=== PATIENT | male | born 1945 | race Caucasian/White ===

== ENCOUNTER 2020-01-24 10:56 | Emergency (ER) | payer OTHER, MEDICARE ==
[~2020-01-24] VITALS: Ht 177.8 cm; Wt 104.3 kg
[~2020-01-24 10:56] MED LIST: FLUO10; LOSHYD; ROSU10TA
[2020-01-24] MEDS ORDERED: TAMS.4ER PO (12:18)
[2020-01-24] MEDS ORDERED: VALS80 PO (12:18)
[2020-01-24] MEDS ORDERED: GABA300 PO (12:19)
[2020-01-24] MEDS ORDERED: BENADRYL25 MG PO (12:19)
[2020-01-24] MEDS ORDERED: CHLO25B PO (12:19)
[2020-01-24] MEDS ORDERED: ASPI81CH PO (12:19)
[2020-01-24] MEDS ORDERED: METO50ER PO (12:20)
[2020-01-24] MEDS ORDERED: Percocet 7.5-31 EACH PO (14:03)
== END 2020-01-24 14:12 | disposition home or self-care (01) ==
LOC: ER 10:56
DX: M25.561 Pain in right knee (principal); G89.29 Other chronic pain; Z88.5 Allergy status to narcotic agent; Z91.013 Allergy to seafood; E11.9 Type 2 diabetes mellitus without complications; M19.90 Unspecified osteoarthritis, unspecified site; Z79.82 Long term (current) use of aspirin; Z79.899 Other long term (current) drug therapy
CPT/HCPCS: 99283

== ENCOUNTER 2023-07-14 19:15 | Emergency (ER) | payer OTHER ==
[~2023-07-14] VITALS: Ht 172.7 cm; Wt 99.8 kg
[~2023-07-14 19:15] MED LIST changes: +ASPI81CH PO; +BENADRYL25 MG PO; +CHLO25B PO; +GABA300 PO; +METO50ER PO; +Percocet 7.5-31 EACH PO; +TAMS.4ER PO; +VALS80 PO
[2023-07-14 19:44] LABS: BASOPHILS ABSOLUTE AUTO 0.04 K/mm3 (0.00-0.23); BASOPHILS PERCENT AUTO 1 % (0-2); EOSINOPHILS ABSOLUTE AUTO 0.24 K/mm3 (0.00-0.68); EOSINOPHILS PERCENT AUTO 4 % (0-6); Hematocrit 33.8 % (37.0-53.0); Hemoglobin 11.6 g/dL (13.5-17.5); IMMATURE GRAN ABSOLUTE AUTO 0.03 K/mm3 (0.00-0.10); IMMATURE GRAN PERCENT AUTO 1 % (0-1); LYMPHOCYTES ABSOLUTE AUTO 0.29 K/mm3 (0.84-5.20); LYMPHOCYTES PERCENT AUTO 5 % (21-46); MONOCYTES ABSOLUTE AUTO 0.63 K/mm3 (0.16-1.47); MONOCYTES PERCENT AUTO 12 % (4-13); Mean Corpuscular HGB Conc 34.3 g/dL (31.5-36.5); Mean Corpuscular Volume 93 fL (80-100); Mean Platelet Volume 10.1 fL (9.1-12.4); NEUTROPHILS ABSOLUTE AUTO 4.21 K/mm3 (1.96-9.15); NEUTROPHILS PERCENT AUTO 77 % (41-73); Platelet Count 123 K/mm3 (150-400); RDW Coefficient Variation 13.3 % (11.7-14.2); RDW Standard Deviation 45.7 fL (35.1-46.3); Red Blood Cell Count 3.62 M/mm3 (4.30-5.90); White Blood Cell Count 5.44 K/mm3 (4.00-11.30)
[2023-07-14 20:04] LABS: Albumin, Blood 3.4 g/dL (3.4-5.0); Albumin/Globulin Ratio 0.9 (0.8-1.8); Bilirubin, Total 0.5 mg/dL (0.1-1.0); Bun/Creatinine Ratio 15.7 (12.0-20.0); Calcium, Blood 8.4 mg/dL (8.5-10.1); Creatinine, Blood 1.21 mg/dL (0.60-1.20); Globulin, Blood 3.7 g/dL (2.2-4.0); Potassium, Blood 4.2 mmol/L (3.5-5.5); Total Protein, Blood 7.1 g/dL (6.4-8.2)
[2023-07-14 20:12] LABS: Influenza A, PCR NEGATIVE (NEGATIVE); Influenza B, PCR NEGATIVE (NEGATIVE); Resp Syncytial Virus, PCR NEGATIVE (NEGATIVE)
[2023-07-14 20:13] LABS: Source, Urine Clean Catch
[2023-07-14 20:16] LABS: Appearance, Urine Clear (Clear); Bilirubin, Urine Neg (Neg); Blood, Urine 2+ (Neg); Color, Urine Yellow (P-Yellow); Glucose Qualitative, Urine 4+ (Neg); Ketones, Urine Neg (Neg); Leukocyte Esterase, Urine Neg (Neg); Nitrite, Urine Neg (Neg); Protein, Urine 3+ (Neg); Specific Gravity, Urine 1.015 (1.003-1.022); Urobilinogen, Urine NORM (Normal)
[2023-07-14 20:24] LABS: Bacteria Rare /hpf; Squamous Epithelial Cells Not Seen /hpf (Few); White Blood Cells, Urine 0-2 /hpf (0-5)
[2023-07-14 20:40] LABS: SARS-Cov-2 (COVID-19) PCR, MMC POSITIVE (NEGATIVE)
[2023-07-14 22:00] VITALS: BP 135/93
== END 2023-07-14 23:00 | disposition home or self-care (01) ==
LOC: ER 19:15
PROVIDERS: Emergency Medicine
DX: U07.1 COVID-19 (principal); R51.9 Headache, unspecified; N18.9 Chronic kidney disease, unspecified; J44.9 Chronic obstructive pulmonary disease, unspecified; M19.90 Unspecified osteoarthritis, unspecified site; E11.22 Type 2 diabetes mellitus with diabetic chronic kidney disease; Z88.5 Allergy status to narcotic agent; Z91.018 Allergy to other foods; Z79.899 Other long term (current) drug therapy; Z79.82 Long term (current) use of aspirin
CPT/HCPCS: 0241U; 71045; 80053; 81001; 85025; 93005; 93010; A9270; J7030

== ENCOUNTER 2024-02-02 20:51 | Observation (INO) | payer OTHER ==
[~2024-02-02] VITALS: Ht 175.3 cm; Wt 105.8 kg
[~2024-02-02 20:51] MED LIST changes: -FLUO10; +FLUO10 PO
[2024-02-02] MEDS ORDERED: Nitroglycerin 0.4 MG SUBL SL ONE (21:20)
[2024-02-02] MEDS ORDERED: Aspirin 325 MG Tab PO ONE (21:20)
[2024-02-02 21:22] LABS: BASOPHILS ABSOLUTE AUTO 0.08 K/mm3 (0.00-0.23); BASOPHILS PERCENT AUTO 1 % (0-2); EOSINOPHILS ABSOLUTE AUTO 0.45 K/mm3 (0.00-0.68); EOSINOPHILS PERCENT AUTO 8 % (0-6); Hematocrit 37.7 % (37.0-53.0); Hemoglobin 12.7 g/dL (13.5-17.5); IMMATURE GRAN ABSOLUTE AUTO 0.04 K/mm3 (0.00-0.10); IMMATURE GRAN PERCENT AUTO 1 % (0-1); LYMPHOCYTES ABSOLUTE AUTO 1.44 K/mm3 (0.84-5.20); LYMPHOCYTES PERCENT AUTO 24 % (21-46); MONOCYTES ABSOLUTE AUTO 0.72 K/mm3 (0.16-1.47); MONOCYTES PERCENT AUTO 12 % (4-13); Mean Corpuscular HGB 32.2 pg (26.0-34.0); Mean Corpuscular HGB Conc 33.7 g/dL (31.5-36.5); Mean Corpuscular Volume 96 fL (80-100); Mean Platelet Volume 9.9 fL (9.1-12.4); NEUTROPHILS ABSOLUTE AUTO 3.17 K/mm3 (1.96-9.15); NEUTROPHILS PERCENT AUTO 54 % (41-73); Platelet Count 142 K/mm3 (150-400); RDW Standard Deviation 45.7 fL (35.1-46.3); Red Blood Cell Count 3.94 M/mm3 (4.30-5.90)
[2024-02-02] MEDS ORDERED: Aspirin325 MG PO (21:28)
[2024-02-02] MEDS ORDERED: JARDIANCE10 MG PO (21:37)
[2024-02-02] MEDS ORDERED: LORA10ER PO (21:39)
[2024-02-02] MEDS ORDERED: ALBU2.5V5 INH (21:39)
[2024-02-02 21:40] LABS: Albumin, Blood 3.8 g/dL (3.4-5.0); Albumin/Globulin Ratio 1.1 (0.8-1.8); Bilirubin, Total 0.4 mg/dL (0.1-1.0); Bun/Creatinine Ratio 15.2 (12.0-20.0); Calcium, Blood 9.2 mg/dL (8.5-10.1); Creatinine, Blood 2.3 mg/dL (0.60-1.20); Globulin, Blood 3.6 g/dL (2.2-4.0); Potassium, Blood 4.1 mmol/L (3.5-5.5); Total Protein, Blood 7.4 g/dL (6.4-8.2)
[2024-02-02] MEDS ORDERED: ALOGLIPTIN6.25 M1 PO (21:50)
[2024-02-02] MEDS ORDERED: MONT5TCH PO (21:51)
[2024-02-02] MEDS ORDERED: ATROVENT HFA12.9 GM (21:51)
[2024-02-02] MEDS ORDERED: Enoxaparin 30 MG/0.3 ML SYR SC SCH (23:00)
[2024-02-02] MEDS ORDERED: FentaNYL Citrate 50 MCG/ML 2 ML Injection IV PRN (23:00)
[2024-02-02] MEDS ORDERED: Ondansetron HCl 2 MG / ML 2ML Vial IV PRN (23:00)
[2024-02-02] MEDS ORDERED: Nitroglycerin 0.4 MG SUBL SL PRN (23:00)
[2024-02-02] MEDS ORDERED: FLU VACC QS2023-24(6MOS UP)/PF 60 MCG/0.5 ML SYRINGE IM ONE (23:00)
[2024-02-02] MEDS ORDERED: NS 1,000 ML IV ONE (23:55)
[2024-02-02] MEDS ORDERED: Mag Hydrox/Al Hydrox/Simeth 72 ML,Lidocaine 2% Viscous Soln 36 ML,Atropine/Scopalam/Hyo... PO PRN (23:55)
[2024-02-03 00:18] LABS: Source, Urine Clean Catch
[2024-02-03 00:21] LABS: Bilirubin, Urine Neg (Neg); Blood, Urine Neg (Neg); Glucose Qualitative, Urine 4+ (Neg); Ketones, Urine Neg (Neg); Leukocyte Esterase, Urine Neg (Neg); Nitrite, Urine Neg (Neg); Protein, Urine 3+ (Neg); Specific Gravity, Urine 1.015 (1.003-1.022); Urobilinogen, Urine NORM (Normal)
[2024-02-03 00:26] LABS: Appearance, Urine Clear (Clear); Bacteria Not Seen /hpf; Color, Urine Yellow (P-Yellow); Red Blood Cells, Urine Not Seen /hpf (0-2); Squamous Epithelial Cells Rare /hpf (Few); White Blood Cells, Urine Not Seen /hpf (0-5)
[2024-02-03 00:30] VITALS: BP 133/103
[2024-02-03] MEDS ORDERED: NS 1,000 ML IV ONE (00:40)
[2024-02-03 00:56] LABS: U Amphetamine Screen Not Detected; U Barbituate Screen Not Detected; U Benzodiazapine Screen Not Detected; U Buprenorphine Screen Not Detected; U Cannabinoids Screen Not Detected; U Cocaine Screen Not Detected; U Methadone Screen Not Detected; U Methamphetamine Screen Not Detected; U Opiates Screen Not Detected; U Oxycodone Screen Not Detected; U Phencyclidine Screen Not Detected
[2024-02-03 03:36] VITALS: BP 178/87
[2024-02-03] MEDS ORDERED: HydrALAZINE HCl 20 MG / ML 1ML Vial IV PRN (05:25)
[2024-02-03 05:30] VITALS: BP 147/76
--- NOTE | 2024-02-03 05:32 | NUR ---
SHIFT SUMMARY NOC PT A/O X 4. INDEPENDENT/CONT. PLEASANT AND COOPERATIVE WITH CARE. ADMIT FROM ED WITH CP FOR LAST FEW DAYS. GIVEN NITRO X 1 IN ED WHICH RELIEVED PRESSURE/DISCOMFORT. TROPONINS 25 AND 24. NO C/O OF CP SINCE COMING TO UNIT. PT REPORTED USING CPAP AT HOME, SO ORDER OBTAINED FOR CPAP WITH BIOX FOR SLEEP. PT ON TELE RUNNING SINUS RHYTHM IN 70'S. ECHO SCHEDULED FOR TODAY, WELL RENAL/BLADDER ULTRASOUND DUE TO POOR KIDNEY FUNCTION LABS. PT RECEIVING 1L NS @ 75 ML/HR X 1 BAG. PT MEDICATION RECONCILIATION NOT COMPLETED DUE TO PT NOT KNOWING EXACTLY WHAT RX AND DOSAGES THEY TAKE REGULARLY. WILL PASS ALONG TO DAY RN THAT PT USES [facility] FOR PRESCRIPTIONS FOR RX LIST. PT IS CURRENTLY RESTING WITH CPAP ON, BED IN LOWEST POSITION, AND CALL LIGHT WITHIN REACH.
[2024-02-03] MEDS ORDERED: Albuterol 2.5 MG/3 ML VIAL INH PRN (06:40)
[2024-02-03] MEDS ORDERED: Ipratropium Bromide INH 0.02% 0.5 mg/2.5ML Vial INH PRN (06:45)
[2024-02-03 07:08] LABS: BASOPHILS ABSOLUTE AUTO 0.07 K/mm3 (0.00-0.23); BASOPHILS PERCENT AUTO 1 % (0-2); EOSINOPHILS ABSOLUTE AUTO 0.48 K/mm3 (0.00-0.68); EOSINOPHILS PERCENT AUTO 9 % (0-6); Hematocrit 35.8 % (37.0-53.0); Hemoglobin 12.4 g/dL (13.5-17.5); IMMATURE GRAN ABSOLUTE AUTO 0.04 K/mm3 (0.00-0.10); IMMATURE GRAN PERCENT AUTO 1 % (0-1); LYMPHOCYTES ABSOLUTE AUTO 1.53 K/mm3 (0.84-5.20); LYMPHOCYTES PERCENT AUTO 28 % (21-46); MONOCYTES ABSOLUTE AUTO 0.63 K/mm3 (0.16-1.47); MONOCYTES PERCENT AUTO 12 % (4-13); Mean Corpuscular HGB 32.7 pg (26.0-34.0); Mean Corpuscular HGB Conc 34.6 g/dL (31.5-36.5); Mean Corpuscular Volume 95 fL (80-100); Mean Platelet Volume 10.3 fL (9.1-12.4); NEUTROPHILS ABSOLUTE AUTO 2.74 K/mm3 (1.96-9.15); NEUTROPHILS PERCENT AUTO 50 % (41-73); Platelet Count 150 K/mm3 (150-400); RDW Coefficient Variation 12.9 % (11.7-14.2); RDW Standard Deviation 44.4 fL (35.1-46.3); Red Blood Cell Count 3.79 M/mm3 (4.30-5.90); White Blood Cell Count 5.49 K/mm3 (4.00-11.30)
[2024-02-03 07:21] LABS: Albumin, Blood 3.6 g/dL (3.4-5.0); Albumin/Globulin Ratio 1.1 (0.8-1.8); Bilirubin, Total 0.3 mg/dL (0.1-1.0); Bun/Creatinine Ratio 19.9 (12.0-20.0); Calcium, Blood 9.2 mg/dL (8.5-10.1); Creatinine, Blood 1.76 mg/dL (0.60-1.20); Globulin, Blood 3.3 g/dL (2.2-4.0); Potassium, Blood 3.8 mmol/L (3.5-5.5); Total Protein, Blood 6.9 g/dL (6.4-8.2)
[2024-02-03 07:24] VITALS: BP 194/104
[2024-02-03] MEDS ORDERED: Insulin Human Lispro 100 Units/ML 3ML Syringe SC SCH (07:30)
[2024-02-03 07:54] VITALS: BP 188/78
[2024-02-03 08:51] VITALS: BP 149/69
[2024-02-03] MEDS ORDERED: Metoprolol Succinate 50 MG TABCR PO SCH (09:00)
[2024-02-03] MEDS ORDERED: Gabapentin 300 MG Cap PO SCH (09:00)
[2024-02-03] MEDS ORDERED: FLUoxetine HCl 10 MG Cap PO SCH (09:00)
[2024-02-03] MEDS ORDERED: Tamsulosin HCl 0.4 MG Cap PO SCH (09:00)
[2024-02-03] MEDS ORDERED: NITR.4SL SL (16:11)
--- NOTE | 2024-02-03 17:25 | NUR ---
SHIFT/DISCHARGE SUMMARY: PATIENT A/OX4, PLEASANT AND COOPERATIVE c CARE. PATIENT REPORTS "ACHY PAIN LIKE TO CHEST." PER PATIENT "I HAVE THIS PAIN FO 4 DAYS NOW." TROP RESULT NEGATIVE. PATIENT ON TELE, SR HR IN THE HIGH 70'S c OCCASIONAL PVC. PATIENT DENIES SOB, DIZZINESS AND N/V. PATIENT HAS EXCELLENT APPETITE, CONTINENCE OF BLADDER AND USES URINAL INDEPENDENTLY. PATIENT HAD ECHO AND ULTRASOUND TO ABDOMEN DONE c RESULT. PATIENT REQUESTING TO GO HOME THIS AM, DR. MACIAS IS AWARE OF THIS ISSUE DURING PATIENT ROUNDING THIS AM. PATIENT HAS NO COMPLAINTS OR NEW CONCERNED THIS SHIFT, BESIDE TO GO HOME TODAY. PIV TO R FOREARM DC'D. PATIENT DISCHARGE HOME. DISCHARGE INSTRUCTIONS PACKET GIVEN TO PATIENT/SPOUSE AT BEDSIDE. EDUCATE PATIENT AND SPOUSE REGARDING ADMITTING DX'S OF CP, S/S, TX, NEW RX AND TO F/U c PCP. PATIENT VERBALIZED UNDERSTANDING AND NO FURTHER QUESTIONS AT THIS TIME. RX WAS FAXED TO PATIENT PREFERRED PHARMACY ([facility]). ALL PATIENT PERSONAL BELONGINGS WERE SENT HOME c THE PATIENT. PATIENT LEFT THE ROOM AT 1635 AND WAS TRANSPORTED VIA WHEELCHAIR BY [employer]IST STAFF, NOLAN DODGE TO PATIENT ENTRANCE.
[2024-02-03] MEDS ORDERED: Aspirin 325 MG Tab PO SCH (21:00)
== END 2024-02-03 16:35 | disposition home or self-care (01) ==
LOC: ER 20:51 → ERHOLD 20:52 → MEDS 20:52
PROVIDERS: Emergency Medicine; ADMIT Internal Medicine
DX: N17.9 Acute kidney failure, unspecified (principal); R07.9 Chest pain, unspecified; Z88.5 Allergy status to narcotic agent; Z95.1 Presence of aortocoronary bypass graft; E11.9 Type 2 diabetes mellitus without complications
CPT/HCPCS: 36415; 71045; 76770; 80053; 81001; 82947; 84484; 85025; 93005; 93010; 93306; 94660; 94762; 96374; 99285-25; A9270; G0378; J0360; J1650; J7030

== ENCOUNTER 2024-06-05 08:47 | Day surgery (SDC) | payer OTHER ==
[~2024-06-05] VITALS: Ht 177.8 cm; Wt 107.0 kg
[~2024-06-05 08:47] MED LIST changes: +ALBU2.5V5 INH; +ALOGLIPTIN6.25 M1 PO; +ATROVENT HFA12.9 GM; +Aspirin325 MG PO; +Balanced Salt Epinephrine Irrigation Solution 500 mL IR SCH; +FentaNYL Citrate 50 MCG/ML 2 ML Injection ONE; +JARDIANCE10 MG PO; +LORA10ER PO; +Lidocaine HCl/Pf 1% 5 ML VIAL ONE; +Lidocaine HCl/Pf 1% 5 ML VIAL XX SCH; +MONT5TCH PO; +Midazolam HCl 1MG / ML 2ML Vial ONE; +Moxifloxacin HCL 0.5 MG/0.1 ML 0.4MLSYR RIGHTEYE SCH; +NITR.4SL SL; +NS 500 ML IV ONE; +PHENYLEPHRINE\\TROPICAMIDE\\TETRACAINE OPHTHALMIC DILATING SOLN RIGHTEYE PRN; +Povidone-Iodine 450 DROP/30 ML Solution RIGHTEYE SCH; +Triamcinolone Inj Susp 10 MG / ML 5ML Vial ONE; +Triamcinolone Inj Susp 40 MG / ML 1ML Vial INJ SCH
[2024-06-05] MEDS ORDERED: NS 500 ML IV ONE (09:03)
[2024-06-05] MEDS ORDERED: Inderal40 MG PO (09:11)
[2024-06-05 10:22] VITALS: BP 100/58
== END 2024-06-05 10:45 | disposition home or self-care (01) ==
LOC: ORSCSDS 08:47
PROVIDERS: Ophthalmology
PROC: 08RJ3JZ Replacement of Right Lens with Synthetic Substitute, Percutaneous Approach (ICD-10-PCS; principal; 2024-06-05 10:00)
DX: E11.36 Type 2 diabetes mellitus with diabetic cataract (principal); H25.811 Combined forms of age-related cataract, right eye; H21.81 Floppy iris syndrome; Z86.73 Personal history of transient ischemic attack (TIA), and cerebral infarction without residual deficits; I25.2 Old myocardial infarction; I10 Essential (primary) hypertension; E66.9 Obesity, unspecified; Z68.33 Body mass index [BMI] 33.0-33.9, adult; Z85.46 Personal history of malignant neoplasm of prostate; Z85.51 Personal history of malignant neoplasm of bladder; Z79.82 Long term (current) use of aspirin; Z79.84 Long term (current) use of oral hypoglycemic drugs; Z79.899 Other long term (current) drug therapy; Z87.891 Personal history of nicotine dependence
CPT/HCPCS: 82947; J2001; J2250; J3010; J3301; J7040; V2632

== ENCOUNTER 2024-06-12 09:00 | Day surgery (SDC) | payer OTHER ==
[~2024-06-12] VITALS: Ht 177.8 cm; Wt 107.6 kg
[~2024-06-12 09:00] MED LIST changes: -FentaNYL Citrate 50 MCG/ML 2 ML Injection ONE; +Inderal40 MG PO; -Lidocaine HCl/Pf 1% 5 ML VIAL ONE; -Midazolam HCl 1MG / ML 2ML Vial ONE; +Moxifloxacin HCL 0.5 MG/0.1 ML 0.4MLSYR LEFTEYE SCH; -Moxifloxacin HCL 0.5 MG/0.1 ML 0.4MLSYR RIGHTEYE SCH; +PHENYLEPHRINE\\TROPICAMIDE\\TETRACAINE OPHTHALMIC DILATING SOLN LEFTEYE PRN; -PHENYLEPHRINE\\TROPICAMIDE\\TETRACAINE OPHTHALMIC DILATING SOLN RIGHTEYE PRN; +Povidone-Iodine 450 DROP/30 ML Solution LEFTEYE SCH; -Povidone-Iodine 450 DROP/30 ML Solution RIGHTEYE SCH; -Triamcinolone Inj Susp 10 MG / ML 5ML Vial ONE; +Triamcinolone Inj Susp 40 MG / ML 1ML Vial ONE
[2024-06-12] MEDS ORDERED: NS 500 ML IV ONE (09:27)
--- NOTE | 2024-06-12 09:27 | NUR ---
06/12/24 0927 Joseline Turner AT 0914 PLEDGET AT 0916
[2024-06-12] MEDS ORDERED: Midazolam HCl 1MG / ML 2ML Vial ONE (09:40)
[2024-06-12 10:16] VITALS: BP 115/66
== END 2024-06-12 10:28 | disposition home or self-care (01) ==
LOC: ORSCSDS 09:00
PROVIDERS: Ophthalmology
PROC: 08RK3JZ Replacement of Left Lens with Synthetic Substitute, Percutaneous Approach (ICD-10-PCS; principal; 2024-06-12 10:00)
DX: E11.36 Type 2 diabetes mellitus with diabetic cataract (principal); H25.812 Combined forms of age-related cataract, left eye; H52.202 Unspecified astigmatism, left eye; I10 Essential (primary) hypertension; I25.10 Atherosclerotic heart disease of native coronary artery without angina pectoris; R06.02 Shortness of breath; J44.9 Chronic obstructive pulmonary disease, unspecified; Z95.1 Presence of aortocoronary bypass graft; K21.9 Gastro-esophageal reflux disease without esophagitis; Z79.84 Long term (current) use of oral hypoglycemic drugs; Z79.899 Other long term (current) drug therapy
CPT/HCPCS: 82947; J2250; J3301; J7040; V2632

== ENCOUNTER 2025-07-05 01:14 | Inpatient (IN) | payer OTHER ==
[~2025-07-05] VITALS: Ht 177.8 cm; Wt 109.3 kg
[~2025-07-05 01:14] MED LIST changes: -Balanced Salt Epinephrine Irrigation Solution 500 mL IR SCH; -Lidocaine HCl/Pf 1% 5 ML VIAL XX SCH; -Moxifloxacin HCL 0.5 MG/0.1 ML 0.4MLSYR LEFTEYE SCH; -NS 500 ML IV ONE; -PHENYLEPHRINE\\TROPICAMIDE\\TETRACAINE OPHTHALMIC DILATING SOLN LEFTEYE PRN; -Povidone-Iodine 450 DROP/30 ML Solution LEFTEYE SCH; -Triamcinolone Inj Susp 40 MG / ML 1ML Vial INJ SCH; -Triamcinolone Inj Susp 40 MG / ML 1ML Vial ONE
[2025-07-05 02:05] LABS: Alanine Aminotransfer (ALT/SGP 23.0 U/L (12-78); Albumin, Blood 3.6 g/dL (3.4-5.0); Albumin/Globulin Ratio 0.9 (0.8-1.8); Anion Gap 7.0 mmol/L (3-11); Aspartate Aminotrans (AST/SGOT 37.0 U/L (12-37); Bilirubin, Total 0.4 mg/dL (0.1-1.0); Blood Urea Nitrogen 53.0 mg/dL (8-24); CO2, Blood 25.0 mmol/L (21-32); Calcium, Blood 8.8 mg/dL (8.5-10.1); Chloride, Blood 111.0 mmol/L (98-108); Creatinine, Blood 2.21 mg/dL (0.60-1.20); Globulin, Blood 4.1 g/dL (2.2-4.0); Glucose, Blood 175.0 mg/dL (70-99); Potassium, Blood 5.4 mmol/L (3.5-5.5); Sodium, Blood 138.0 mmol/L (136-145); Total Protein, Blood 7.7 g/dL (6.4-8.2)
[2025-07-05 02:11] LABS: Prothrombin Time Results 11.0 Sec (9.7-11.5)
[2025-07-05 02:13] LABS: BASOPHILS ABSOLUTE AUTO 0.08 K/mm3 (0.00-0.23); BASOPHILS PERCENT AUTO 1 % (0-2); EOSINOPHILS ABSOLUTE AUTO 0.51 K/mm3 (0.00-0.68); EOSINOPHILS PERCENT AUTO 6 % (0-6); Hematocrit 31.1 % (37.0-53.0); Hemoglobin 10.8 g/dL (13.5-17.5); IMMATURE GRAN ABSOLUTE AUTO 0.10 K/mm3 (0.00-0.10); IMMATURE GRAN PERCENT AUTO 1 % (0-1); LYMPHOCYTES ABSOLUTE AUTO 1.05 K/mm3 (0.84-5.20); LYMPHOCYTES PERCENT AUTO 13 % (21-46); MONOCYTES ABSOLUTE AUTO 0.69 K/mm3 (0.16-1.47); MONOCYTES PERCENT AUTO 8 % (4-13); Mean Corpuscular HGB Conc 34.7 g/dL (31.5-36.5); Mean Corpuscular Volume 95 fL (80-100); NEUTROPHILS ABSOLUTE AUTO 5.87 K/mm3 (1.96-9.15); NEUTROPHILS PERCENT AUTO 71 % (41-73); NRBC ABSOLUTE 0.00 K/mm3 (0.00-0.02); NRBC Auto 0.0 /100 WBC (0.0-0.2); Platelet Count 163 K/mm3 (150-400); RDW Coefficient Variation 13.5 % (11.7-14.2); RDW Standard Deviation 46.6 fL (35.1-46.3)
[2025-07-05] MEDS ORDERED: Tenecteplase 50 MG / Kit IV SCH (02:50)
[2025-07-05] MEDS ORDERED: Tenecteplase 50 MG / Kit IV ONE (03:15)
[2025-07-05] MEDS ORDERED: NiCARdipine HCL 500 MCG/5 ML SYR IV SCH (04:45)
[2025-07-05] MEDS ORDERED: NS 1,000 ML IV SCH (05:00)
[2025-07-05 05:08] LABS: Thyroid Stimulating Hormone 4.99 uIU/mL (0.360-4.800)
[2025-07-05] MEDS ORDERED: NiCARdipine HCL 50 MG in NS 250 ML IV PRN (05:10)
[2025-07-05] MEDS ORDERED: NS 1,000 ML IV ONE (06:00)
[2025-07-05] MEDS ORDERED: Tranexamic Acid 100 ML IV ONE (06:10)
[2025-07-05 06:15] VITALS: BP 128/68
[2025-07-05 06:33] LABS: Prothrombin Time Results 11.2 Sec (9.7-11.5)
[2025-07-05] MEDS ORDERED: Midazolam HCl 1MG / ML 2ML Vial IV ONE (06:40)
[2025-07-05] MEDS ORDERED: Tranexamic Acid 100 ML IV SCH (07:15)
[2025-07-05 08:39] VITALS: BP 123/72
[2025-07-05 08:41] LABS: Source, Urine Foley catheter
[2025-07-05 08:49] LABS: Bilirubin, Urine Neg (Neg); Glucose Qualitative, Urine 4+ (Neg); Ketones, Urine 1+ (Neg); Leukocyte Esterase, Urine Neg (Neg); Protein, Urine 2+ (Neg); Specific Gravity, Urine 1.010 (1.003-1.022); Urobilinogen, Urine NORM (Normal)
[2025-07-05] MEDS ORDERED: NiCARdipine HCL 50 MG in NS 250 ML IV SCH (08:55)
[2025-07-05 08:57] LABS: Color, Urine Pale Yellow (P-Yellow)
[2025-07-05 09:01] LABS: White Blood Cells, Urine 0-2 /hpf (0-5)
[2025-07-05] MEDS ORDERED: Rocuronium Bromide 10 MG/ML 5ML Injection IV ONE (15:52)
[2025-07-05] MEDS ORDERED: Etomidate 2MG / ML 10ML Vial XX ONE (15:52)
== END 2025-07-05 08:00 | disposition short-term general hospital (02) | DRG 62 ==
LOC: ER 01:14 → ICUE 04:35
PROVIDERS: Emergency Medicine; Student in an Organized Health Care Education/Training Program; ADMIT Student in an Organized Health Care Education/Training Program
PROC: 3E03317 Introduction of Other Thrombolytic into Peripheral Vein, Percutaneous Approach (ICD-10-PCS; principal; 2025-07-05)
PROC: 0BH17EZ Insertion of Endotracheal Airway into Trachea, Via Natural or Artificial Opening (ICD-10-PCS; 2025-07-05)
PROC: 0DH67UZ Insertion of Feeding Device into Stomach, Via Natural or Artificial Opening (ICD-10-PCS; 2025-07-05)
DX: I63.9 Cerebral infarction, unspecified (principal); G81.91 Hemiplegia, unspecified affecting right dominant side; R47.01 Aphasia; E11.9 Type 2 diabetes mellitus without complications; I25.10 Atherosclerotic heart disease of native coronary artery without angina pectoris; J44.9 Chronic obstructive pulmonary disease, unspecified; M19.90 Unspecified osteoarthritis, unspecified site; R29.707 NIHSS score 7; I44.0 Atrioventricular block, first degree; Z85.46 Personal history of malignant neoplasm of prostate; Z85.51 Personal history of malignant neoplasm of bladder; Z91.013 Allergy to seafood; Z79.82 Long term (current) use of aspirin; Z79.84 Long term (current) use of oral hypoglycemic drugs; Z79.899 Other long term (current) drug therapy; Z98.1 Arthrodesis status; Z95.1 Presence of aortocoronary bypass graft; Z88.5 Allergy status to narcotic agent
CPT/HCPCS: 31500; 51702; 70450; 70496; 70498; 71045; 80053; 81001; 82947; 83036; 84443; 85025; 85384; 85610; 85730; 87086; 93005; 93010; 94002; J2250; J2704; J3101; J7030; J7050; Q9967